=== PATIENT | male | born 2000 | race Caucasian/White ===

== ENCOUNTER → 2023-09-07 | Emergency (ER) | payer MEDICAID ==
[~2023-09-07] VITALS: Ht 165.1 cm; Wt 66.0 kg
[~2023-09-07] MED LIST: CEPH-556 PO; CEPHALEXIN MONOHYDRATE 250 MG CAPSULE PO ONE; SULF1TAB42 PO; SULFAMETHOX/TRIMETH DS 800-160 MG/TABLET PO ONE
[2023-09-07 16:48] VITALS: BP 103/65; PULSE 74; RESP 14; TEMP 97.3
== END | disposition still patient (30) ==
LOC: EMS 16:48
DX: S60.452A Superficial foreign body of right middle finger, initial encounter (principal); W45.8XXA Other foreign body or object entering through skin, initial encounter; Y93.89 Activity, other specified; Y92.89 Other specified places as the place of occurrence of the external cause; Y99.8 Other external cause status
CPT/HCPCS: 99284; Z7502; Z7610